=== PATIENT | male | born 2000 | race Two or more races ===

== ENCOUNTER 2023-06-20 17:03 | Emergency (ER) | payer OTHER ==
--- NOTE | 2023-06-20 17:26 | ED Physician Documentation ---
PD HPI CHEST PAIN - Stated complaint Stated Complaint: CHEST PX - Chief complaint Chief Complaint: Cardiac - History obtained from History obtained from: Patient - History of Present Illness Timing - onset: How many weeks ago (1) Timing - onset during: Rest Timing - duration: Weeks (1) Timing - details: Intermittant Pain level max: 3 Pain level now: 2 Quality: Sharp Location: Right chest Radiation: No: Jaw, Neck, Back, Abdominal, Left upper extremity, Right upper extremity Improved by: Nothing Worsened by: Other (exhalation). No: Exertion, Inspiration, Eating, Movement, Palpation, Position Associated symptoms: No: Shortness of air, Diaphoresis, Nausea, Vomiting, Feeling faint / dizzy, General Weakness, Palpitations, Cough Similar symptoms before: Has not had sx before - Additional information Additional information: R sided upper chest pain with exhaling. Patient states recently quit vaping and quit marijuana. No history of blood clots in the family. No history of young cardiac disease. Review of Systems Constitutional: denies: Fever, Chills Nose: denies: Rhinorrhea / runny nose, Congestion Throat: denies: Sore throat Cardiac: denies: Palpitations Respiratory: denies: Dyspnea, Cough, Hemoptysis GI: denies: Vomiting, Diarrhea Musculoskeletal: denies: Neck pain, Back pain Neurologic: denies: Headache PD PAST MEDICAL HISTORY - Past Medical History Past Medical History: No - Past Surgical History Past Surgical History: No - Present Medications Home Medications: Ambulatory Orders Medication Instructions Recorded Confirmed Albuterol Sulf [Ventolin Hfa 1 - 2 puffs INH Q4HR PRN #1 each 06/20/23 Inhaler] Meloxicam [Mobic] 7.5 mg PO BID PRN #20 tablet 06/20/23 - Allergies Allergies/Adverse Reactions: Allergies Allergy/AdvReac Type Severity Reaction Status Date / Time No Known Drug Allergies Allergy Verified 06/20/23 17:21 - Living Situation Living Arrangement: reports: At home - Family History Family history: reports: Non contributory PD ED PE NORMAL - Vitals Vital signs reviewed: Yes - General General: Alert and oriented X 3, No acute distress - HEENT HEENT: Moist mucous membranes - Neck Neck: Supple, no meningeal sign - Cardiac Cardiac: RRR, Strong equal pulses - Respiratory Respiratory: No respiratory distress, Clear bilaterally, Other (No chest wall tenderness) - Abdomen Abdomen: Soft, Non tender, Non distended - Derm Derm: Warm and dry, No rash - Extremities Extremities: No edema, No calf tenderness / cord - Neuro Neuro: Alert and oriented X 3 - Psych Psych: Normal mood, Normal affect Results - Vitals Vitals: Vital Signs - 24 hr 06/20/23 06/20/23 06/20/23 17:18 18:35 19:02 Temperature 36.7 C Heart Rate 66 80 62 Respiratory 18 20 16 Rate Blood Pressure 139/74 H 116/69 O2 Saturation 100 100 Oxygen O2 Source Room air - EKG (time done) 1714 EKG releavant findings:: EKG personally interpreted by author of this note. Relevant findings are: Rate: Rate (enter#) (63) Rhythm: NSR Start: Normal Intervals: Normal MO QRS: Normal Ischemia: ST elevation c/w repol - Labs Labs: Laboratory Tests 06/20/23 06/20/23 06/20/23 17:29 17:29 17:29 WBC 5.4 RBC 4.94 Hgb 13.9 L Hct 41.5 L MCV 84.0 MCH 28.1 MCHC 33.5 RDW 13.2 Plt Count 159 MPV 10.9 Neut # (Auto) 2.8 Lymph # (Auto) 2.1 [place] # (Auto) 0.4 Eos # (Auto) 0.0 Baso # (Auto) 0.0 Absolute Nucleated RBC 0.00 Nucleated RBC % 0.0 Sodium 138 Potassium 4.2 Chloride 106 Carbon Dioxide 27 Anion Gap 5.0 L BUN 12 Creatinine 0.8 Estimated GFR (MDRD) 123 Glucose 98 Calcium 9.7 Total Bilirubin 0.7 AST 16 ALT 14 Alkaline Phosphatase 65 Troponin I High Sens < 2.3 L Total Protein 7.2 Albumin 4.9 Globulin 2.3 Albumin/Globulin Ratio 2.1 Lipase 15 - Rads (name of study) Chest x-ray Relevant Findings:: Final report received, See rad report PD Medical Decision Making - ED course Complexity details: reviewed results, re-evaluated patient, considered differential (No ST elevation VT, no aortic dissection, no PE, no tension pneumothorax, no aortic aneurysm), d/w patient ED course: 22-year-old male with chest pain when exhaling. Unclear etiology. No evidence of PE. No evidence of ACS. No history of young coronary disease or clotting disorders in the family. Does feel better after albuterol. We will prescribe an inhaler for home. No significant laboratory abnormalities. EKG consistent with benign early repolarization. We will place on anti-inflammatories for home as well, possible pleurisy? Patient counseled regarding signs and symptoms for which I believe and urgent re-evaluation would be necessary. Patient with good understanding of and agreement to plan and is comfortable going home at this time This document was made in part using voice recognition software. While efforts are made to proofread this document, sound alike and grammatical errors may occur. Departure - Departure Disposition: Home, Self Care Clinical Impression: Atypical chest pain, Bronchial irritation, Pleurisy Condition: Good Instructions: ED Chest Pain Atypical Unkn Cause, ED Chest Pain Pleurisy Follow-Up: your,doctor in 1 week [Other] Prescriptions: Albuterol Sulf [Ventolin Hfa Inhaler] 1 - 2 puffs INH Q4HR PRN #1 each PRN Reason: Shortness Of Air/Wheezing Meloxicam [Mobic] 7.5 mg PO BID PRN #20 tablet PRN Reason: Pain Comments: Please follow-up with your doctor for further care. Your laboratory testing, chest x-ray and EKG did not show any acute abnormalities today. We will try you on anti-inflammatory medications and an inhaler. Please return if you worsen. Forms: PCP List Discharge Date/Time: 06/20/23 19:02
[2023-06-20 17:39] LABS: BASOPHILS % (AUTO) 0.7 %; EOSINOPHILS % (AUTO) 0.6 %; HCT - HEMATOCRIT 41.5 % (42.0-52.0); HGB - HEMOGLOBIN 13.9 g/dL (14.0-18.0); LYMPHOCYTES # (AUTO) 2.1 10^3/uL (1.5-3.5); LYMPHOCYTES % (AUTO) 38.8 %; MEAN CORPUSCULAR HEMOGLOBIN 28.1 pg (27.0-31.0); MEAN CORPUSCULAR HGB CONC 33.5 g/dL (32.0-36.0); MEAN PLATELET VOLUME 10.9 fL (7.4-11.4); MONOCYTES # (AUTO) 0.4 10^3/uL (0.0-1.0); MONOCYTES % (AUTO) 7.8 %; NEUTROPHILS # (AUTO) 2.8 10^3/uL (1.5-6.6); NEUTROPHILS % (AUTO) 51.9 %; PLT - PLATELET COUNT 159 10^3/uL (130-450); RED BLOOD COUNT 4.94 10^6/uL (4.70-6.10); RED CELL DISTRIBUTION WIDTH 13.2 % (12.0-15.0); WHITE BLOOD COUNT 5.4 x10^3/uL (4.8-10.8)
--- NOTE | 2023-06-20 17:45 | XRAY Report ---
PROCEDURE: Chest 1 View X-Ray INDICATIONS: Chest pain TECHNIQUE: One view of the chest was acquired. COMPARISON: None. FINDINGS: Surgical changes and devices: None. Lungs and pleura: No pleural effusions or pneumothorax. Lungs are clear. Mediastinum: Mediastinal contours appear normal. Heart size is normal. Bones and chest wall: No suspicious bony lesions. Overlying soft tissues appear unremarkable. IMPRESSION: No acute cardiopulmonary process. Reviewed by: Julius Mcnulty MD on 06/20/2023 4:43 PM ROQUEDT Approved by: Julius Mcnulty MD on 06/20/2023 4:43 PM AKDT Station ID: [id number]
[2023-06-20 17:52] LABS: ALBUMIN 4.9 g/dL (3.2-5.5); ALBUMIN/GLOBULIN RATIO 2.1 (1.0-2.2); BILIRUBIN,TOTAL 0.7 mg/dL (0.2-1.0); CALCIUM 9.7 mg/dL (8.5-10.3); CREATININE 0.8 mg/dL (0.6-1.3); POTASSIUM 4.2 mmol/L (3.5-4.5); TOTAL PROTEIN 7.2 g/dL (6.4-8.9)
[2023-06-20] MEDS ORDERED: ALBUTEROL NEB 2.5 MG/3 ML INH STA (18:11)
[2023-06-20 19:04] VITALS: BP 116/69
== END 2023-06-20 19:02 | disposition home or self-care (01) ==
LOC: ED 17:03
DX: R07.89 Other chest pain (principal); R09.1 Pleurisy; J40 Bronchitis, not specified as acute or chronic
CPT/HCPCS: 36415; 80053; 83690; 84484; 85025; 93005; 94640; 94664; 99284

== ENCOUNTER 2023-07-30 20:07 | Emergency (ER) | payer OTHER ==
[2023-07-30 20:19] VITALS: O2SAT 96
[2023-07-30] MEDS ORDERED: diphenhydrAMINE INJ 50 MG/ML VIAL IM STA (20:30)
[2023-07-30] MEDS ORDERED: KETOROLAC 30 MG/ML VIAL IM STA (20:30)
--- NOTE | 2023-07-30 20:44 | ED Physician Documentation ---
History of Present Illness - Stated complaint Stated Complaint: JOHNSON - Chief complaint Chief Complaint: Neuro - Additonal information Additional information: 22-year-old male presents emergency department for evaluation of a frontal headache that began this afternoon when he was returning home from [employer]. Denies any noise or light sensitivity. No nausea or vomiting. He is not taking anything for the headache. He states that over the last several weeks or months he has been having headaches with increased frequency. No a.m. headaches. No thunderclap headaches. No fevers neck pain. No history of cancer or immune suppression. He was seen in this emergency department recently for chest pain with a negative work-up. Review of Systems Constitutional: denies: Fever Eyes: reports: Reviewed and negative Ears: reports: Reviewed and negative Nose: reports: Reviewed and negative Throat: reports: Reviewed and negative Cardiac: reports: Reviewed and negative Respiratory: reports: Reviewed and negative GI: reports: Reviewed and negative : reports: Reviewed and negative Skin: reports: Reviewed and negative Neurologic: reports: Headache. denies: Syncope, Seizure, Confused, Head injury, LOC PD PAST MEDICAL HISTORY - Past Surgical History Past Surgical History: No - Present Medications Home Medications: Ambulatory Orders Medication Instructions Recorded Confirmed No Known Home Medications 07/30/23 07/30/23 - Allergies Allergies/Adverse Reactions: Allergies Allergy/AdvReac Type Severity Reaction Status Date / Time No Known Drug Allergies Allergy Verified 07/30/23 20:16 PD ED PE NORMAL - General General: Alert and oriented X 3, No acute distress, Well developed/nourished - HEENT HEENT: PERRL, Moist mucous membranes - Neck Neck: Supple, no meningeal sign, No adenopathy - Cardiac Cardiac: RRR, No murmur - Respiratory Respiratory: No respiratory distress, Clear bilaterally - Abdomen Abdomen: Normal bowel sounds, Soft - Back Back: No CVA TTP - Derm Derm: Normal color, Warm and dry, No rash - Extremities Extremities: No deformity - Neuro Neuro: Alert and oriented X 3, 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 No light or noise sensitivity. No neck pain. No fevers. Not sudden onset or thunderclap. Has not taken anything for headache. Emergency department I did administer him 30 mg of Toradol and 25 mg of Benadryl IM and on reevaluation the headache is fully resolved. Is not clear if the patient is developing primary headaches or migraines based on history today. However he has no red flags such as thunderclap, fevers, neck pain or immune suppression and as such I deferred advanced imaging. I discussed with him the usual conservative routine management of the headaches as well as the emergent return precautions. Eva is that still old that goes to [facility] and get that stone was completely closed so she can take stuff by my she just she needs to get it done as an outpatient that somebody discharge her Departure - Departure Disposition: Home, Self Care Clinical Impression: Headache Qualifiers: Headache type: unspecified Headache chronicity pattern: acute headache Intractability: not intractable Qualified Code(s): R51.9 - Headache, unspecified Condition: Stable Instructions: ED Cephalgia Unspecified Comments: Zoltan you have begun to have headaches. In general it is important that you maintain good nutrition and aim for 6 to 8 hours of sleep at night. If you smoke or vape stop. If you use cannabis daily stop. In general stay well-hydrated. If you develop a headache it is okay to take Tylenol 500 mg or ibuprofen 600 mg with food. If this does not typically resolve the headache or get suddenly severe then return to the ER. Red flags for headaches include sudden severe headache called a thunderclap, headaches associated with any fever or trauma, headaches associated with a history of cancer or immune suppression. I like you to discuss this ED visit with your primary care doctor. If you find that the headaches are increasing in frequency and not able to be managed with usual conservative measures then they may want to consider advanced imaging such as CT or MRI or migraine medications such as triptans. Forms: PCP List
[2023-07-30 21:37] VITALS: BP 123/74
== END 2023-07-30 21:38 | disposition home or self-care (01) ==
LOC: ED 20:07
DX: R51.9 Headache, unspecified (principal)
CPT/HCPCS: 96372; 99283; J1200

== ENCOUNTER 2023-10-16 16:15 | Emergency (ER) | payer OTHER ==
[2023-10-16 16:27] VITALS: BP 140/80; O2SAT 99
[2023-10-16 17:58] LABS: B. PARAPERTUSSIS- RESP PCR PAN NOT DETECTED; B. PERTUSSIS- RESP PCR PANEL NOT DETECTED; C. PNEUMONIAE- RESP PCR PANEL NOT DETECTED; CORONAVIRUS 229E-RESP PCR NOT DETECTED; CORONAVIRUS HKU1-RESP PCR NOT DETECTED; CORONAVIRUS NL63-RESP PCR NOT DETECTED; CORONAVIRUS OC43-RESP PCR NOT DETECTED; HUMAN METAPNEUMOVIRUS NOT DETECTED; INFLUENZA A- RESP PCR PANEL NOT DETECTED; INFLUENZA B - RESP PCR PANEL NOT DETECTED; M. PNEUMONIAE- RESP PCR PANEL NOT DETECTED; PARAINFLUENZA VIRUS 1 NOT DETECTED; PARAINFLUENZA VIRUS 2 NOT DETECTED; PARAINFLUENZA VIRUS 3 NOT DETECTED; PARAINFLUENZA VIRUS 4 NOT DETECTED; RHINOVIRUS/ENTEROVIRUS NOT DETECTED; RSV- RESP PCR PANEL NOT DETECTED; SARS-CoV-2 -RESP PCR PANEL DETECTED
--- NOTE | 2023-10-16 18:12 | ED Physician Documentation ---
History of Present Illness - Stated complaint Stated Complaint: JOHNSON/COUGH - Chief complaint Chief Complaint: General - History obtained from History obtained from: Patient - Additonal information Additional information: 23-year-old male presents stating that he had a positive home COVID test but his employer does not believe him as he needs an test from the ER in order to get time off work. The patient states he has had symptoms for a couple of days, in the last taste and smell today. Has minor cough, body aches, and subjective fever. He has not had any respiratory distress, no nausea vomiting diarrhea or constipation, and is tolerating p.o. well. He has no chronic medical conditions. He took a home COVID test today which was positive and needs a work note. PD PAST MEDICAL HISTORY - Past Medical History Past Medical History: No - Past Surgical History Past Surgical History: No - Present Medications Home Medications: Ambulatory Orders Medication Instructions Recorded Confirmed No Known Home Medications 07/30/23 07/30/23 - Allergies Allergies/Adverse Reactions: Allergies Allergy/AdvReac Type Severity Reaction Status Date / Time No Known Drug Allergies Allergy Verified 10/16/23 16:22 - Social History Does the pt smoke?: No Smoking Status: Never smoker Does the pt drink ETOH?: No Does the pt have substance abuse?: No - Immunizations Immunizations are current?: Yes PD ED PE NORMAL - Vitals Vital signs reviewed: Yes - General General: Alert and oriented X 3, No acute distress, Well developed/nourished - HEENT HEENT: Atraumatic, Moist mucous membranes - Cardiac Cardiac: RRR, No murmur - Respiratory Respiratory: No respiratory distress, Clear bilaterally - Derm Derm: Normal color, Warm and dry - Neuro Neuro: Alert and oriented X 3 Eye Opening: Spontaneous Motor: Obeys Commands Verbal: Oriented GCS Score: 15 Results - Vitals Vitals: Vital Signs - 24 hr 10/16/23 16:22 Temperature 36.8 C Heart Rate 75 Respiratory 16 Rate Blood Pressure 140/80 H O2 Saturation 99 Oxygen O2 Source Room air - Labs Labs: Laboratory Tests 10/16/23 16:28 Nasal Adenovirus (PCR) NOT DETECTED Nasal B. parapertussis DNA (PCR) NOT DETECTED Nasal Coronavir 229E PCR NOT DETECTED Nasal Coronavir HKU1 PCR NOT DETECTED Nasal Coronavir NL63 PCR NOT DETECTED Nasal Coronavir OC43 PCR NOT DETECTED Nasal Enterovir/Rhinovir PCR NOT DETECTED Nasal Influenza B PCR NOT DETECTED Nasal Influenza A PCR NOT DETECTED Nasal Parainfluen 1 PCR NOT DETECTED Nasal Parainfluen 2 PCR NOT DETECTED Nasal Parainfluen 3 PCR NOT DETECTED Nasal Parainfluen 4 PCR NOT DETECTED Nasal RSV (PCR) NOT DETECTED Nasal B.pertussis DNA PCR NOT DETECTED Nasal C.pneumoniae (PCR) NOT DETECTED Ernesto Human Metapneumo PCR NOT DETECTED Nasal M.pneumoniae (PCR) NOT DETECTED Nasal SARS-CoV-2 (PCR) DETECTED A PD Medical Decision Making - ED course Complexity details: reviewed results, d/w patient ED course: 23-year-old male who presents after mild to viral symptoms at home and a positive home COVID test. He presents for a note for work as his employer has requested. Patient is well-appearing here on physical exam, no acute distress, his vital signs are stable. A viral panel does show that he is COVID-positive. He was therefore given a note for work and COVID precautions and return instructions reviewed. Departure - Departure Disposition: 01 Home, Self Care Clinical Impression: COVID-19 Condition: Good Instructions: ED Viral Syndrome Forms: PCP List, Activity restrictions
== END 2023-10-16 18:21 | disposition home or self-care (01) ==
LOC: ED 16:15
DX: U07.1 COVID-19 (principal)
CPT/HCPCS: 87633; 99283

== ENCOUNTER 2023-12-01 22:24 | Emergency (ER) | payer OTHER ==
[2023-12-01 22:43] VITALS: O2SAT 99
--- NOTE | 2023-12-01 23:16 | ED Physician Documentation ---
PD HPI SKIN - Stated complaint Stated Complaint: INGROWN HAIR - Chief complaint Chief Complaint: Wound - History obtained from History obtained from: Patient - Additional information Additional information: 23yM previously healthy p/w L testicular swelling, erythema and pain X couple days with L testicle lesion at the base that is purulent. denies dysuria, hematuria, increased frequency. denies fever. he states the pain was initially in testicle but has spread to inguinal region. Review of Systems Constitutional: denies: Fever : reports: Testicular pain Skin: reports: Lesions PD PAST MEDICAL HISTORY - Past Medical History Past Medical History: No - Past Surgical History Past Surgical History: No - Present Medications Home Medications: Ambulatory Orders Medication Instructions Recorded Confirmed No Known Home Medications 07/30/23 12/01/23 - Allergies Allergies/Adverse Reactions: Allergies Allergy/AdvReac Type Severity Reaction Status Date / Time No Known Drug Allergies Allergy Verified 12/01/23 22:37 - Social History Does the pt smoke?: Yes Smoking Status: Former smoker Does the pt drink ETOH?: Yes ETOH Use: Beer Does the pt have substance abuse?: No - Immunizations Immunizations are current?: Yes - POLST Patient has POLST: No PD ED PE NORMAL - Vitals Vital signs reviewed: Yes - General General: Alert and oriented X 3, No acute distress, Well developed/nourished - HEENT HEENT: Atraumatic, PERRL, EOMI - Male Male : Other (BL cremaster reflex intact. L testicle swelling compared to R. Lesion with purulent discharge at L testicle base. ttp along inguinal fold. POCUS - suspect L varicocoele. phlegmon developing at site of lesion. ) - Derm Derm: Normal color, Warm and dry, Other (see exam for details. L testicle lesion) Results - Vitals Vitals: Vital Signs - 24 hr 12/01/23 22:25 Temperature 36.7 C Heart Rate 94 Respiratory 14 Rate Blood Pressure 138/79 H O2 Saturation 99 Oxygen O2 Source Room air - Labs Labs: Laboratory Tests 12/01/23 23:17 Urine Color YELLOW Urine Clarity CLEAR Urine pH 6.0 Ur Specific [place] 1.015 Urine Protein NEGATIVE Urine Glucose (UA) NEGATIVE Urine Ketones TRACE Urine Occult Blood TRACE-INTA Urine Nitrite NEGATIVE Urine Bilirubin NEGATIVE Urine Urobilinogen 4 H Ur Leukocyte Esterase NEGATIVE Urine RBC 0-5 Urine WBC 0-3 Ur Squamous Epith Cells FEW Squamous Urine Bacteria Rare Urine Culture Comments NOT INDICATED PD Medical Decision Making - ED course ED course: 23yM presents to the ED with L testicle lesion. patient states he normally shaves testicular hair and is not sure if he has an ingrown. agreeable to STI testing. swabs taken and u/a sent. u/a negative. cultures pending. u/s shows 4X1.8X3.3cm abscess on L scrotal sac. d/w Dr Irizarry personal support worker for urology who states that since it's draining the patient should be placed on bactrim and can f/u with him in clinic in 1 week. return precautions given to patient. Departure - Departure Clinical Impression: Testicular swelling, left, Testicular lesion Condition: Stable Follow-Up: Drake Irizarry MD [Provider Admit Priv/Credential] - Comments: You were seen in the emergency department for a lesion on your testicle as well as swelling. Swabs for herpes, chlamydia and gonorrhea were taken as well as for other bacteria. Please follow-up with urology and return to the emergency department if you have any new or worsening symptoms or other concerns. Forms: PCP List
[2023-12-01 23:24] LABS: BILIRUBIN,URINE NEGATIVE (NEGATIVE); GLUCOSE, URINE (UA) NEGATIVE (NEGATIVE); KETONES,URINE (UA) TRACE mg/dL (NEGATIVE); LEUKOCYTE ESTERASE, URINE NEGATIVE (NEGATIVE); NITRITE,URINE NEGATIVE (NEGATIVE); OCCULT BLOOD,URINE TRACE-INTA (NEGATIVE); PROTEIN,URINE NEGATIVE (NEGATIVE); UROBILINOGEN,URINE 4 E.U./dL (NORMAL)
[2023-12-01 23:35] LABS: BACTERIA,URINE Rare /HPF (None Seen); CLARITY,URINE CLEAR (CLEAR); RBC,URINE 0-5 /HPF (0-5); SQUAMOUS EPITHELIAL CELL,UR FEW Squamous (<= Few); WBC,URINE 0-3 /HPF (0-3)
[2023-12-02] MEDS ORDERED: cefTRIAXone 250 MG VIAL IM STA (00:16)
[2023-12-02] MEDS ORDERED: LIDOCAINE 1% 2 ML VIAL MC ONE (00:16)
[2023-12-02] MEDS ORDERED: AZITHROMYCIN 250 MG TABLET PO STA (00:19)
[2023-12-02 00:47] VITALS: BP 165/77
[2023-12-02 03:32] LABS: CHLAMYDIA TRACHOMATIS DNA NEGATIVE (NEGATIVE); NEISSERIA GONORRHOEAE DNA NEGATIVE (NEGATIVE); TRICHOMONAS VAGINALIS DNA NEGATIVE (NEGATIVE)
--- NOTE | 2023-12-02 09:01 | Ultrasound Report ---
PROCEDURE: Testicle w/Doppler INDICATIONS: L testicle enlarged, red with lesion to base TECHNIQUE: Real-time scanning was performed of the scrotum and testicles, with image documentation. Color and p ulse Doppler interrogation was performed of both testicles. COMPARISON: None. FINDINGS: Right: Testicle is normal in size at 5.5 x 2.4 x 3.4 cm. Within the inferior aspect of the testicle and area of palpable concern there is a 4.1 x 1.8 x 3.3 cm focus of heterogeneous echogenicity with i ncreased vascularity. Epididymis is normal in overall size and morphology. Increased vascularity is p resent. There is presence of a hydrocele. No varicoceles. Overlying scrotal skin is normal in thickn ess. Left: Testicle is normal in size at 4.9 x 2.3 x 3.4 cm, and homogeneous in echotexture. Epididymis demonstrates vascularity is present. Cyst is present measuring 1.3 x 1.4 x 1.5 cm. There is presence of a hydrocele and varicoceles. Overlying scrotal skin is normal in thickness. Doppler: Color and pulse Doppler demonstrate normal and symmetric arterial flow in both testicles. IMPRESSION: Heterogeneous echogenic focus of increased vascularity inferior testicle. Differential includes absce ss versus hypervascular mass of other etiology which can include malignancy although somewhat atypica l in appearance. Recommend correlation to patient's symptoms and short interval imaging follow-up to document resolution. Bilateral increased vascularity to the epididymis which can be seen with epididymitis. No torsion at time of exam. Intermittent torsion cannot be excluded. Reviewed by: Olivia Tripathi MD on 12/02/2023 9:00 AM PST Approved by: Olivia Tripathi MD on 12/02/2023 9:00 AM PST Station ID: [id number]
[2023-12-03 13:10] LABS: HSV 1 IGG TYPE SPEC 0.92 index (0.00-0.90); HSV 2 IGG TYPE SPEC <0.91 index (0.00-0.90)
[2023-12-07 06:10] LABS: HSV-1 DNA Negative (Negative); HSV-2 DNA Negative (Negative)
== END 2023-12-02 00:47 | disposition home or self-care (01) ==
LOC: ED 22:24
DX: N50.9 Disorder of male genital organs, unspecified (principal); N50.812 Left testicular pain; N50.89 Other specified disorders of the male genital organs; Z87.891 Personal history of nicotine dependence
CPT/HCPCS: 76870; 81001; 86695; 86696; 87070; 87181; 87205; 87255; 87491; 87529; 87591; 87661; 93975; 96372; 99283; 99284; A9270; 87086